=== PATIENT | male | born 1950 | race Caucasian/White ===

== ENCOUNTER → 2025-03-20 07:57 | Outpatient (REF) | payer MEDICARE, OTHER, SELFPAY | LOC: HWRAD 07:57 | PROVIDERS: ATTENDING PHYSICIAN Internal Medicine Endocrinology, Diabetes & Metabolism; FAMILY PHYSICIAN Nurse Practitioner Family | DX: E29.1 Testicular hypofunction (principal); M81.0 Age-related osteoporosis without current pathological fracture | CPT/HCPCS: 76870; 77080; 93976 ==

== ENCOUNTER → 2025-04-04 12:37 | Outpatient (REF) | payer MEDICARE, OTHER, SELFPAY | LOC: PAVMRI 12:37 | PROVIDERS: ATTENDING PHYSICIAN Internal Medicine Endocrinology, Diabetes & Metabolism; FAMILY PHYSICIAN Nurse Practitioner Family | DX: E29.1 Testicular hypofunction (principal) | CPT/HCPCS: 70553; A9575 ==